=== PATIENT | male | born 1995 | race African-American/Black ===

== ENCOUNTER 2019-05-04 07:08 | Emergency (ER) | payer OTHER, SELFPAY ==
[2019-05-04] MEDS ORDERED: TETANUS & DIPHTHERIA TOX,ADULT 0.5 ML VIAL ONE (07:29)
[2019-05-04] MEDS ORDERED: LIDOCAINE 2% MPF 5 ML VIAL ONE (07:29)
--- NOTE | 2019-05-04 08:47 | EDPHYS ---
Physician Documentation [facility] Name: Adis Palacios JR. Age: 24 yrs Sex: Male : 1995 Arrival Date: 05/04/2019 Time: 07:11 Bed 16 Private MD: ED Physician Mp Martinez HPI: 05/04 07:28 This 24 yrs old Black Male presents to ER via Ambulatory with complaints of Laceration pm1 To Arm. 07:28 The patient has a laceration occurred at home, The injury was accidental. The pm1 laceration(s) is(are) located on the palmar aspect of right forearm. Onset: The symptoms/episode began/occurred just prior to arrival. Associated signs and symptoms: Pertinent negatives: deformity, dizziness, heavy bleeding, numbness distal to injury, suspected foreign body. The patient has not experienced similar symptoms in the past. Patient was walking out the door and a metal piece on the door cut his forearm. Historical: - Allergies: 07:21 No Known Allergies; ss - Home Meds: 07:21 None [Active]; ss - PMHx: 07:21 None; ss - PSHx: 07:21 None; ss - Immunization history:: Adult Immunizations up to date, Last tetanus immunization: < 10 years ago. - Social history:: Smoking status: Patient/guardian denies using tobacco. - Ebola Screening: : Patient denies exposure to infectious person Patient denies travel to an Ebola-affected area in the 21 days before illness onset. ROS: 07:28 Constitutional: Negative for fever, chills, and weight loss, Cardiovascular: Negative pm1 for chest pain, palpitations, and edema, Respiratory: Negative for shortness of breath, cough, wheezing, and pleuritic chest pain, Back: Negative for injury and pain. 07:28 Neuro: Negative for headache, weakness, numbness, tingling, and seizure. 07:28 MS/extremity: Positive for injury or acute deformity, laceration, of the palmar aspect of right forearm. 07:28 Skin: Positive for laceration(s), of the palmar aspect of right forearm. Exam: 07:28 Constitutional: This is a well developed, well nourished patient who is awake, alert, pm1 and in no acute distress. Head/Face: Normocephalic, atraumatic. Chest/axilla: Normal chest wall appearance and motion. Nontender with no deformity. No lesions are appreciated. Cardiovascular: Regular rate and rhythm with a normal S1 and S2. No gallops, murmurs, or rubs. Normal PMI, no JVD. No pulse deficits. Respiratory: Lungs have equal breath sounds bilaterally, clear to auscultation and percussion. No rales, rhonchi or wheezes noted. No increased work of breathing, no retractions or nasal flaring. Back: No spinal tenderness. No costovertebral tenderness. Full range of motion. 07:28 Skin: Appearance: normal except for affected area, injury, laceration(s), the wound is approximately 2 cm(s), of the palmar aspect of right forearm. 07:28 Neuro: Orientation: is normal, Motor: is normal, moves all fours. Vital Signs: 07:17 BP 134 / 84; Pulse 72; Resp 16; Temp 98.3(O); Pulse Ox 98% on R/A; Height 6 ft. 1 in. ss (185.42 cm); Pain 7/10; 08:30 BP 128 / 78; Pulse 69; Resp 18; Temp 97.3; Pulse Ox 99% on R/A; ph Laceration: 07:49 Wound Repair of 2cm ( 0.8in ) subcutaneous laceration to palmar aspect of right pm1 forearm. Linear shaped.. Distal neuro/vascular/tendon intact. Anesthesia: Local anesthetic administered with 1 mls of 1% lidocaine. Wound prep: Extensive cleansing with betadine by me, Wound irrigation with saline by me, Wound explored extensively, Copious irrigation. Skin closed with 2 4-0 Prolene using simple sutures and sterile technique. Dressed with 4x4's. Patient tolerated well. MDM: 07:13 Patient medically screened. pm1 08:22 ED course: Right forearm xray: negative for fracture, foreign body. pm1 08:45 Data reviewed: vital signs. Data interpreted: Pulse oximetry: on room air is 98 %. pm1 Interpretation: normal. Counseling: I had a detailed discussion with the patient and/or guardian regarding: the historical points, exam findings, and any diagnostic results supporting the discharge/admit diagnosis, radiology results, the need for outpatient follow up, suture removal in 7-10 days, to return to the emergency department if symptoms worsen or persist or if there are any questions or concerns that arise at home. 05/04 07:17 Order name: Forearm Right XRAY; Complete Time: 09:02 pm1 05/04 07:17 Order name: Prolene, Sutures; Complete Time: 07:52 pm1 05/04 07:17 Order name: Dressing - Wound; Complete Time: 07:52 pm1 05/04 07:17 Order name: Gloves, Sterile; Complete Time: 07:52 pm1 05/04 07:17 Order name: Setup Suture Tray; Complete Time: 07:52 pm1 Administered Medications: 07:52 Drug: Tetanus-Diphtheria Toxoid Adult 0.5 ml {Master Cook: [employer]. Exp: ph 12/04/2020. Lot #: [id number]. } Route: IM; Site: left deltoid; 09:00 Follow up: Response: No adverse reaction ph 09:03 Follow up: Response: No adverse reaction ss 15:51 Follow up: Response: No adverse reaction ph 08:00 Drug: Lidocaine (1 %) 5 ml {Note: 1 mL administered by Neel Busby NP.} Volume: 5 ss ml; Route: Infiltration; 09:00 Follow up: Response: No adverse reaction ph 09:05 Follow up: Response: No adverse reaction ss Disposition: 05/05 07:00 Co-signature as Attending Physician, Mp Martinez MD I agree with the assessment and 4 plan of care. Disposition: 05/04/19 08:46 Discharged to Home. Impression: Laceration without foreign body of right forearm. - Condition is Stable. - Discharge Instructions: Laceration Care, Adult. - Prescriptions for Keflex 500 mg Oral Capsule - take 1 capsule by ORAL route every 12 hours for 10 days; 20 capsule. - Work release form, Medication Reconciliation Form, Thank You Letter, Antibiotic Education, Prescription Opioid Use form. - Follow up: Emergency Department; When: As needed; Reason: Worsening of condition. Follow up: Private Physician; When: 7 - 10 days; Reason: Wound Recheck, Recheck today's complaints, Continuance of care, Staple/Suture removal, Re-evaluation by your physician. - Problem is new. - Symptoms have improved. Signatures: Dispatcher [facility] HospitalEliane Rae RN RN ss Shagufta Langston RN RN ph Neel Busby, TRAVEL COUNSELOR TRAVEL COUNSELOR pm1 Mp Martinez, MD CHAVEZ tw4 Corrections: (The following items were deleted from the chart) 05/04 09:06 08:46 05/04/2019 08:46 Discharged to Home. Impression: Laceration without foreign body ss of right forearm. Condition is Stable. Forms are Medication Reconciliation Form, Thank You Letter, Antibiotic Education, Prescription Opioid Use. Follow up: Emergency Department; When: As needed; Reason: Worsening of condition. Follow up: Private Physician; When: 7 - 10 days; Reason: Wound Recheck, Recheck today's complaints, Continuance of care, Staple/Suture removal, Re-evaluation by your physician. Problem is new. Symptoms have improved. pm1
--- NOTE | 2019-05-04 08:47 | ER ---
Nurse's Notes [facility] Name: Adis Palacios JR. Age: 24 yrs Sex: Male : 1995 Arrival Date: 05/04/2019 Time: 07:11 Bed 16 Private MD: Diagnosis: Laceration without foreign body of right forearm Presentation: 05/04 07:18 Presenting complaint: Patient states: <1 cm laceration to R FA sustained at 0500 this ss morning after running into a piece of metal in a doorway. Transition of care: patient was not received from another setting of care. Complicating Factors: There are no complicating factors for this patient. Onset of symptoms was May 04, 2019. Risk Assessment: Do you want to hurt yourself or someone else? Patient reports no desire to harm self or others. Initial Sepsis Screen: Does the patient meet any 2 criteria? No. Patient's initial sepsis screen is negative. Does the patient have a suspected source of infection? No. Patient's initial sepsis screen is negative. Care prior to arrival: None. 07:18 Method Of Arrival: Ambulatory ss 07:18 Acuity: BRAVO 4 ss Historical: - Allergies: 07:21 No Known Allergies; ss - Home Meds: 07:21 None [Active]; ss - PMHx: 07:21 None; ss - PSHx: 07:21 None; ss - Immunization history:: Adult Immunizations up to date, Last tetanus immunization: < 10 years ago. - Social history:: Smoking status: Patient/guardian denies using tobacco. - Ebola Screening: : Patient denies exposure to infectious person Patient denies travel to an Ebola-affected area in the 21 days before illness onset. Screenin:21 Abuse screen: Denies threats or abuse. Denies injuries from another. Nutritional ss screening: No deficits noted. Tuberculosis screening: Never had TB. Fall Risk None identified. Assessment: 07:21 General: Appears in no apparent distress. comfortable, Behavior is calm, cooperative. ss Pain: Complains of pain in palmar aspect of right forearm Pain currently is 7 out of 10 on a pain scale. Quality of pain is described as tender, Pain began 0500 this AM Is continuous. Neuro: Level of Consciousness is awake, alert, obeys commands, Oriented to person, place, time, situation. Cardiovascular: Capillary refill < 3 seconds is brisk in bilateral fingers. Respiratory: Airway is patent Respiratory effort is even, unlabored, Respiratory pattern is regular, symmetrical. GI: Patient currently denies diarrhea, nausea, vomiting. : Derm: Skin is intact, is healthy with good turgor, Skin is pink, warm \T\ dry. normal. Musculoskeletal: Circulation, motion, and sensation intact. Range of motion: intact in all extremities, Swelling absent. Injury Description: Laceration sustained to palmar aspect of right forearm is 0.5 to 2.5 cm long, was sustained 2-4 hours ago. is bleeding no active bleeding noted. Vital Signs: 07:17 BP 134 / 84; Pulse 72; Resp 16; Temp 98.3(O); Pulse Ox 98% on R/A; Height 6 ft. 1 in. ss (185.42 cm); Pain 7/10; 08:30 BP 128 / 78; Pulse 69; Resp 18; Temp 97.3; Pulse Ox 99% on R/A; ph ED Course: 07:11 Patient arrived in ED. ds1 07:13 Neel Busby NP is PHCP. pm1 07:13 Mp Martinez MD is Attending Physician. pm1 07:17 Arm band placed on right wrist. ss 07:20 Triage completed. ss 07:21 Patient has correct armband on for positive identification. Bed in low position. Call ss light in reach. 07:24 Shagufta Langston, RN is Primary Nurse. ph 08:32 Forearm Right XRAY In Process Unspecified. EDMS 09:05 No provider procedures requiring assistance completed. Patient did not have IV access ss during this emergency room visit. Administered Medications: 07:52 Drug: Tetanus-Diphtheria Toxoid Adult 0.5 ml {Electrician Wiring: [employer]. Exp: ph 12/04/2020. Lot #: [id number]. } Route: IM; Site: left deltoid; 09:00 Follow up: Response: No adverse reaction ph 09:03 Follow up: Response: No adverse reaction ss 15:51 Follow up: Response: No adverse reaction ph 08:00 Drug: Lidocaine (1 %) 5 ml {Note: 1 mL administered by Neel Busby NP.} Volume: 5 ss ml; Route: Infiltration; 09:00 Follow up: Response: No adverse reaction ph 09:05 Follow up: Response: No adverse reaction Outcome: 08:46 Discharge ordered by MD. pm1 09:05 Discharged to home ambulatory, with family. 09:05 Condition: good 09:05 Discharge instructions given to patient, significant other, Instructed on discharge instructions, follow up and referral plans. medication usage, Demonstrated understanding of instructions, follow-up care, medications, Prescriptions given X 1. 09:06 Patient left the ED. ss Signatures: Dispatcher [employer] [facility] Marce Goode ds1 Eliane Mena RN RN Shagufta Hill RN RN Neel Busby, SECOND SHIFT SUPERVISOR SECOND SHIFT SUPERVISOR pm1
--- NOTE | 2019-05-04 08:53 | RAD REPORT ---
EXAM DESCRIPTION: RAD - Forearm Right - 05/04/2019 8:32 am CLINICAL HISTORY: Laceration COMPARISON: No comparisons FINDINGS: No fracture or foreign body seen.
[2019-05-04 09:27] VITALS: BP 134/84; TEMP 98.3; O2SAT 98
== END 2019-05-04 09:06 | disposition home or self-care (01) ==
LOC: ER 07:08
PROC: 0JQG0ZZ Repair Right Lower Arm Subcutaneous Tissue and Fascia, Open Approach (ICD-10-PCS; principal; 2019-05-04)
DX: S51.811A Laceration without foreign body of right forearm, initial encounter (principal); W45.8XXA Other foreign body or object entering through skin, initial encounter; Y93.89 Activity, other specified; Y92.009 Unspecified place in unspecified non-institutional (private) residence as the place of occurrence of the external cause; Z23 Encounter for immunization
CPT/HCPCS: 90471; 90714; 99283

== ENCOUNTER 2020-02-18 10:48 | Emergency (ER) | payer SELFPAY ==
--- NOTE | 2020-02-18 11:30 | ER ---
Nurse's Notes [facility] Name: Adis Palacios JR. Age: 24 yrs Sex: Male : 1995 Arrival Date: 02/18/2020 Time: 10:49 Bed 15 Private MD: Diagnosis: Acute sinusitis Presentation: 02/17 11:07 Chief complaint: Sinus congestion, runny nose, and headache x 3 days. Denies ss fever/cough. Coronavirus screen: At this time, the client does not indicate any symptoms associated with coronavirus-19. Ebola Screen: No symptoms or risks identified at this time. Initial Sepsis Screen: Does the patient meet any 2 criteria? No. Patient's initial sepsis screen is negative. Does the patient have a suspected source of infection? No. Patient's initial sepsis screen is negative. Risk Assessment: Do you want to hurt yourself or someone else? Patient reports no desire to harm self or others. Onset of symptoms was February 16, 2020. 11:07 Method Of Arrival: Ambulatory ss 11:07 Acuity: BRAVO 4 ss Historical: - Allergies: 11:08 No Known Allergies; ss - Home Meds: 11:08 None [Active]; ss - PMHx: 11:08 None; ss - PSHx: 11:08 None; ss - Immunization history:: Adult Immunizations up to date. - Social history:: Smoking status: Patient reports the use of cigarette tobacco products, smokes one pack cigarettes per day. Screenin:13 Abuse screen: Denies threats or abuse. Nutritional screening: No deficits noted. ll1 Tuberculosis screening: No symptoms or risk factors identified. Fall Risk None identified. Total Newman Fall Scale indicates No Risk (0-24 pts). Assessment: 11:13 General: Appears in no apparent distress. Behavior is calm, cooperative. Pain: ll1 Complains of pain in head Quality of pain is described as aching, Is continuous. Neuro: Level of Consciousness is awake, alert, obeys commands, Oriented to person, place, time, situation, Appropriate for age Fisheries Diver are equal bilaterally Moves all extremities. Full function Gait is steady, Speech is normal, Reports headache. Cardiovascular: No deficits noted. Capillary refill < 3 seconds Patient's skin is warm and dry. Respiratory: Airway is patent Trachea midline Respiratory effort is even, unlabored, Respiratory pattern is regular, symmetrical, Breath sounds are clear bilaterally. Denies cough, shortness of breath. GI: No deficits noted. EENT: Nares with drainage noted Reports nasal congestion sinus pain. Vital Signs: 11:07 BP 136 / 76; Pulse 64; Resp 16; Temp 97.8; Pulse Ox 99% ; Weight 90.72 kg; Height 6 ft. ss 1 in. (185.42 cm); Pain 6/10; 11:07 Body Mass Index 26.39 (90.72 kg, 185.42 cm) ED Course: 10:49 Patient arrived in ED. ds1 10:55 Veronica Foreman FNP-C is [facility]. kb 10:55 Dwaine Abel MD is Attending Physician. kb 11:08 Triage completed. ss 11:08 Arm band placed on. ss 11:10 Maritza Aldridge, RN is Primary Nurse. ll1 11:13 Patient has correct armband on for positive identification. Bed in low position. Call ll1 light in reach. Side rails up X 1. 11:39 No provider procedures requiring assistance completed. Patient did not have IV access ll1 during this emergency room visit. Administered Medications: No medications were administered Outcome: 11:30 Discharge ordered by MD. kb 11:39 Discharged to home ambulatory. ll1 11:39 Condition: stable 11:39 Discharge instructions given to patient, Instructed on discharge instructions, follow up and referral plans. medication usage, Demonstrated understanding of instructions, follow-up care. 11:40 Patient left the ED. ll1 Signatures: Veronica Foreman FNP-C FNP-Ckb Sanford, Demi ds1 Eliane Mena RN RN Maritza Aldridge, JOJO RN ll1
--- NOTE | 2020-02-18 11:30 | EDPHYS ---
Physician Documentation [facility] Name: Adis Palacios JR. Age: 24 yrs Sex: Male : 1995 Arrival Date: 02/18/2020 Time: 10:49 Bed 15 Private MD: ED Physician Dwaine Abel HPI: 02/17 12:12 This 24 yrs old Black Male presents to ER via Ambulatory with complaints of Congestion, kb Runny Nose. 12:12 The patient or guardian reports sinus congestion, rhinorrhea. Onset: The kb symptoms/episode began/occurred 2 day(s) ago. Severity of symptoms: At their worst the symptoms were mild, in the emergency department the symptoms are unchanged. Modifying factors: The symptoms are alleviated by nothing, the symptoms are aggravated by nothing. Associated signs and symptoms: Pertinent positives: rhinorrhea, Pertinent negatives: chest pain, diarrhea, ear ache, fever, nausea, sore throat, vomiting. The patient has experienced similar episodes in the past, a few times. The patient has not recently seen a physician. Pt states "I think I have a sinus infection. I have been congested for 2 days.". Historical: - Allergies: 11:08 No Known Allergies; ss - Home Meds: 11:08 None [Active]; ss - PMHx: 11:08 None; ss - PSHx: 11:08 None; ss - Immunization history:: Adult Immunizations up to date. - Social history:: Smoking status: Patient reports the use of cigarette tobacco products, smokes one pack cigarettes per day. ROS: 12:11 Constitutional: Negative for fever, chills, and weight loss, Neck: Negative for injury, kb pain, and swelling, Cardiovascular: Negative for chest pain, palpitations, and edema, Respiratory: Negative for shortness of breath, cough, wheezing, and pleuritic chest pain, Abdomen/GI: Negative for abdominal pain, nausea, vomiting, diarrhea, and constipation, Back: Negative for injury and pain, MS/Extremity: Negative for injury and deformity, Skin: Negative for injury, rash, and discoloration, Neuro: Negative for headache, weakness, numbness, tingling, and seizure. 12:11 ENT: Positive for rhinorrhea, sinus congestion. Exam: 12:11 Constitutional: This is a well developed, well nourished patient who is awake, alert, kb and in no acute distress. Head/Face: Normocephalic, atraumatic. ENT: Nares patent. No nasal discharge, no septal abnormalities noted. Tympanic membranes are normal and external auditory canals are clear. Oropharynx with no redness, swelling, or masses, exudates, or evidence of obstruction, uvula midline. Mucous membranes moist. Neck: Trachea midline, no thyromegaly or masses palpated, and no cervical lymphadenopathy. Supple, full range of motion without nuchal rigidity, or vertebral point tenderness. No Meningismus. Chest/axilla: Normal chest wall appearance and motion. Nontender with no deformity. No lesions are appreciated. Cardiovascular: Regular rate and rhythm with a normal S1 and S2. No gallops, murmurs, or rubs. Normal PMI, no JVD. No pulse deficits. Respiratory: Lungs have equal breath sounds bilaterally, clear to auscultation and percussion. No rales, rhonchi or wheezes noted. No increased work of breathing, no retractions or nasal flaring. Abdomen/GI: Soft, non-tender, with normal bowel sounds. No distension or tympany. No guarding or rebound. No evidence of tenderness throughout. Skin: Warm, dry with normal turgor. Normal color with no rashes, no lesions, and no evidence of cellulitis. MS/ Extremity: Pulses equal, no cyanosis. Neurovascular intact. Full, normal range of motion. Neuro: Awake and alert, GCS 15, oriented to person, place, time, and situation. Cranial nerves II-XII grossly intact. Motor strength 5/5 in all extremities. Sensory grossly intact. Cerebellar exam normal. Normal gait. Vital Signs: 11:07 BP 136 / 76; Pulse 64; Resp 16; Temp 97.8; Pulse Ox 99% ; Weight 90.72 kg; Height 6 ft. ss 1 in. (185.42 cm); Pain 6/10; 11:07 Body Mass Index 26.39 (90.72 kg, 185.42 cm) ss MDM: 11:13 Patient medically screened. kb 12:06 Data reviewed: vital signs, nurses notes. Data interpreted: Pulse oximetry: on room air kb is 99 %. Interpretation: normal. Counseling: I had a detailed discussion with the patient and/or guardian regarding: the historical points, exam findings, and any diagnostic results supporting the discharge/admit diagnosis, the need for outpatient follow up, a family practitioner, to return to the emergency department if symptoms worsen or persist or if there are any questions or concerns that arise at home. Administered Medications: No medications were administered Disposition: 02/18 10:50 Co-signature as Attending Physician, Dwaine Abel MD I agree with the assessment and destini plan of care. Disposition: 02/18/20 11:30 Discharged to Home. Impression: Acute sinusitis. - Condition is Stable. - Discharge Instructions: Sinusitis, Adult, [id number]. - Work release form, Medication Reconciliation Form, Thank You Letter, Antibiotic Education, Prescription Opioid Use form. - Follow up: Emergency Department; When: As needed; Reason: Worsening of condition. Follow up: Private Physician; When: 2 - 3 days; Reason: Recheck today's complaints, Continuance of care, Re-evaluation by your physician. - Notes: Use flonase as directed Take a antihistamine with decongestant (Zyrtec D, Nida D or Claritin D) and Mucinex as directed Signatures: Veronica Foreman, BUSINESS TECHNOLOGY TEACHER-C BUSINESS TECHNOLOGY TEACHER-Ckb Dwaine Abel MD MD cha Smirch, Shelby, JOJO RN ss Maritza Aldridge RN RN ll1 Corrections: (The following items were deleted from the chart) 02/17 11:40 11:30 02/18/2020 11:30 Discharged to Home. Impression: Acute sinusitis. Condition is ll1 Stable. Forms are Medication Reconciliation Form, Thank You Letter, Antibiotic Education, Prescription Opioid Use. Follow up: Emergency Department; When: As needed; Reason: Worsening of condition. Follow up: Private Physician; When: 2 - 3 days; Reason: Recheck today's complaints, Continuance of care, Re-evaluation by your physician. kb
[2020-02-18 12:21] VITALS: BP 136/76; TEMP 97.8; O2SAT 99
== END 2020-02-18 11:40 | disposition home or self-care (01) ==
LOC: ER 10:48
DX: J01.90 Acute sinusitis, unspecified (principal); F17.210 Nicotine dependence, cigarettes, uncomplicated
CPT/HCPCS: 99281

== ENCOUNTER 2020-05-31 | Emergency (ER) | payer SELFPAY ==
--- NOTE | 2020-06-01 04:15 | ER ---
Nurse's Notes [facility] Name: Adis Palacios Jr Age: 25 yrs Sex: Male : 1995 Arrival Date: 05/31/2020 Time: 16:12 Bed Waiting Private MD: Diagnosis: Presentation: 05/31 16:21 Chief complaint: Patient states: Left ankle was hurting about four days ago and has vg1 some swelling and states that work needs a release form that he is 'ok' to come back to work. Coronavirus screen: Client denies travel out of the [place] in the last 14 days. At this time, the client does not indicate any symptoms associated with coronavirus-19. Ebola Screen: Patient negative for fever greater than or equal to 101.5 degrees Fahrenheit, and additional compatible Ebola Virus Disease symptoms. Initial Sepsis Screen: Does the patient meet any 2 criteria? No. Patient's initial sepsis screen is negative. Does the patient have a suspected source of infection? No. Patient's initial sepsis screen is negative. Risk Assessment: Do you want to hurt yourself or someone else? Patient reports no desire to harm self or others. Onset of symptoms was May 27, 2020. 16:21 Method Of Arrival: Ambulatory vg1 16:21 Acuity: BRAVO 4 vg1 Historical: - Allergies: 16:25 No Known Allergies; vg1 - Immunization history:: Adult Immunizations up to date, Flu vaccine is up to date. - Social history:: Smoking status: Patient reports the use of cigarette tobacco products, smokes one pack cigarettes per day. Vital Signs: 16:21 BP 150 / 87; Pulse 97; Resp 16; Temp 97; Pulse Ox 100% on R/A; Weight 108.86 kg; Height vg1 6 ft. 1 in. (185.42 cm); Pain 0/10; 16:21 Body Mass Index 31.66 (108.86 kg, 185.42 cm) vg1 ED Course: 16:12 Patient arrived in ED. as 16:20 Veronica Foreman FNP-C [facility]. kb 16:20 Dwaine Abel MD is Attending Physician. kb 16:25 Triage completed. vg1 16:26 Arm band placed on. EKG completed in triage. Results shown to . vg1 18:17 Veronica Foreman FNP-C is [facility]. kb 18:17 Dwaine Abel MD is Attending Physician. kb Administered Medications: No medications were administered Outcome: 18:19 Patient left the ED. sv Signatures: Veronica Foreman FNP-C FNP-Ckb Verde, Stephanie, RN RN sv Aretha Humphrey Victoria, RN RN vg1
== END 2020-05-31 18:19 | disposition left against medical advice (07) ==
DX: Z02.9 Encounter for administrative examinations, unspecified (principal)
CPT/HCPCS: 99281

== ENCOUNTER 2021-10-16 12:01 | Emergency (ER) | payer SELFPAY ==
--- NOTE | 2021-10-16 12:46 | EDPHYS ---
Physician Documentation [facility] Name: Adis Palacios Jr Age: 26 yrs Sex: Male : 1995 Arrival Date: 10/16/2021 Time: 12:04 Bed Waiting Private MD: ED Physician Andrew Chong HPI: 10/16 12:41 This 26 yrs old Black Male presents to ER via Unassigned with complaints of Congestion. cp 12:41 The patient presents with congestion. cp 12:41 Onset: The symptoms/episode began/occurred 3 day(s) ago. cp 12:41 Associated signs and symptoms: Pertinent positives: cough, headache, chest congestion, cp Pertinent negatives: fever, rhinorrhea, sore throat. Severity of symptoms: in the emergency department the symptoms are unchanged despite home interventions. Historical: - Allergies: 12:42 No Known Allergies; ph - PMHx: 12:42 None; ph - Immunization history:: Adult Immunizations unknown. - Social history:: Smoking status: Patient denies any tobacco usage or history of. ROS: 12:42 Constitutional: Negative for body aches, chills, fever, poor PO intake. cp 12:42 ENT: Negative for sore throat, difficulty swallowing, difficulty handling secretions. 12:42 Respiratory: Positive for cough, with no reported sputum, Negative for shortness of breath, wheezing. 12:42 Abdomen/GI: Negative for abdominal pain, nausea, vomiting, and diarrhea. 12:42 Neuro: Positive for headache. 12:42 All other systems are negative. Exam: 12:42 Head/Face: Normocephalic, atraumatic. cp 12:42 Constitutional: The patient appears in no acute distress, alert, awake, comfortable, non-toxic, well developed, well nourished. 12:42 Eyes: Periorbital structures: appear normal, Conjunctiva: normal, no exudate, no injection, Lids and lashes: appear normal, bilaterally. 12:42 ENT: External ear(s): are unremarkable, Nose: is normal, Mouth: Lips: moist, Oral mucosa: moist, Posterior pharynx: Airway: no evidence of obstruction, patent. 12:42 Neck: Lymph nodes: no appreciated lymphadenopathy. 12:42 Chest/axilla: Inspection: normal, Palpation: is normal, no crepitus, no tenderness. 12:42 Cardiovascular: Rate: normal, Rhythm: regular. 12:42 Respiratory: the patient does not display signs of respiratory distress, Respirations: normal, no use of accessory muscles, no retractions, labored breathing, is not present, Breath sounds: are clear throughout, no decreased breath sounds, no stridor, no wheezing. 12:42 Abdomen/GI: Exam negative for discomfort, distension, guarding, Inspection: abdomen cp appears normal. 12:42 Skin: no rash present. Vital Signs: 12:40 BP 139 / 95; Pulse 85; Resp 18; Temp 97.9; Pulse Ox 98% on R/A; Weight 113.4 kg; Height ph 6 ft. 1 in. (185.42 cm); 12:40 Body Mass Index 32.98 (113.40 kg, 185.42 cm) ph MDM: 12:45 Patient medically screened. cp 12:45 Differential diagnosis: influenza, allergic rhinitis, strep, COVID-19. cp 12:45 Data reviewed: vital signs, nurses notes. cp 12:45 Counseling: I had a detailed discussion with the patient and/or guardian regarding: the cp historical points, exam findings, and any diagnostic results supporting the discharge/admit diagnosis, to return to the emergency department if symptoms worsen or persist or if there are any questions or concerns that arise at home. Administered Medications: No medications were administered Disposition: 21:31 Co-signature as Attending Physician, Andrew MENDEZ was immediately available on-site ms3 in the Emergency Department for consultation in the care of the patient.. Disposition Summary: 10/16/21 12:45 Discharge Ordered Location: Home cp Problem: new cp Symptoms: are unchanged cp Condition: Stable cp Diagnosis - Allergic rhinitis, unspecified cp Followup: cp - With: Private Physician - When: 2 - 3 days - Reason: Worsening of condition Discharge Instructions: - Discharge Summary Sheet ph - Allergies, Adult cp - Form - Excuse from Work, School, or Physical Activity cp - Allergic Rhinitis, Adult cp Forms: - Work release form ph - Medication Reconciliation Form cp - Thank You Letter cp - Antibiotic Education cp - Prescription Opioid Use cp Prescriptions: - Flonase Allergy Relief 50 mcg/actuation Nasal spray,suspension - spray 1 spray by INTRANASAL route once daily for 10 days; 1 Applicator; cp Refills: 0, Product Selection Permitted - Zyrtec 10 mg Oral Tablet - take 1 tablet by ORAL route once daily As needed; 20 tablet; Refills: 0, cp Product Selection Permitted Signatures: Shagufta Langston, JOJO RN Dwaine Chan PA PA cp Sims, Marcus, DO DO ms3
--- NOTE | 2021-10-16 12:46 | ER ---
Nurse's Notes [facility] Name: Adis Palacios Jr Age: 26 yrs Sex: Male : 1995 Arrival Date: 10/16/2021 Time: 12:04 Bed Waiting Private MD: Diagnosis: Allergic rhinitis, unspecified Presentation: 10/16 12:40 Chief complaint: Patient states: Nasal congestion, headache, chest congestion x a few ph days, was sent home from work and needs a note to return. Coronavirus screen: Vaccine status: Patient reports being unvaccinated. Ebola Screen: No symptoms or risks identified at this time. Initial Sepsis Screen: Does the patient meet any 2 criteria? No. Patient's initial sepsis screen is negative. Does the patient have a suspected source of infection? No. Patient's initial sepsis screen is negative. Risk Assessment: Do you want to hurt yourself or someone else? Patient reports no desire to harm self or others. Onset of symptoms was October 16, 2021. 12:40 Method Of Arrival: Ambulatory ph 12:40 Acuity: BRAVO 4 ph Triage Assessment: 12:43 General: Appears in no apparent distress. comfortable, Behavior is calm, cooperative, ph appropriate for age. Pain: Denies pain. EENT: Reports nasal congestion nasal discharge. Neuro: No deficits noted. Respiratory: Airway is patent Respiratory effort is even, unlabored, Respiratory pattern is regular, symmetrical, Breath sounds are clear bilaterally. Derm: Skin is intact, is healthy with good turgor, Skin is pink, warm \T\ dry. Historical: - Allergies: 12:42 No Known Allergies; ph - PMHx: 12:42 None; ph - Immunization history:: Adult Immunizations unknown. - Social history:: Smoking status: Patient denies any tobacco usage or history of. Screenin:45 Abuse screen: Denies threats or abuse. Denies injuries from another. Nutritional ph screening: No deficits noted. Tuberculosis screening: No symptoms or risk factors identified. Fall Risk None identified. Assessment: 12:45 General: SEE TRIAGE ASSESSMENT. ph Vital Signs: 12:40 BP 139 / 95; Pulse 85; Resp 18; Temp 97.9; Pulse Ox 98% on R/A; Weight 113.4 kg; Height ph 6 ft. 1 in. (185.42 cm); 12:40 Body Mass Index 32.98 (113.40 kg, 185.42 cm) ph ED Course: 12:04 Patient arrived in ED. ds1 12:15 [facility]. cp 12:15 Andrew Chong DO is Attending Physician. cp 12:42 Triage completed. ph 12:42 Arm band placed on. ph 12:43 Shagufta Langston RN is Primary Nurse. ph 12:48 Patient has correct armband on for positive identification. ph 12:49 No provider procedures requiring assistance completed. Patient did not have IV access ph during this emergency room visit. Administered Medications: No medications were administered Outcome: 12:45 Discharge ordered by MD. cp 12:49 Discharged to home ambulatory. ph 12:49 Condition: good 12:49 Discharge instructions given to patient, Instructed on discharge instructions, follow up and referral plans. medication usage, Demonstrated understanding of instructions, follow-up care, medications, Prescriptions given X 2. 12:49 Patient left the ED. ph Signatures: Marec Goode ds1 Shagufta Langston RN RN Dwaine Swartz PA PA cp
[2021-10-16 13:01] VITALS: BP 139/95; TEMP 97.9; O2SAT 98
== END 2021-10-16 12:49 | disposition home or self-care (01) ==
LOC: ER 12:01
DX: J30.9 Allergic rhinitis, unspecified (principal); R05.9 Cough, unspecified; R51.9 Headache, unspecified
CPT/HCPCS: 99282